=== PATIENT | female | born 1950 | race Caucasian/White ===

== ENCOUNTER 2018-06-12 11:48 | Emergency (ER) | payer MEDICARE ==
[~2018-06-12] VITALS: Ht 162.6 cm; Wt 104.3 kg
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
--- NOTE | 2018-06-12 13:45 | Diagnostic Imaging Report ---
EXAMINATION: Left hand, 3 views. COMPARISON: None. HISTORY: 67-year-old female, fall. Left hand and forearm pain. FINDINGS: There is no identified acute fracture or dislocation. There is no radiopaque foreign body. The joint spaces appear well preserved. IMPRESSION: 1. No identified acute bony abnormality of the left hand. Dictated by: Dictated on workstation # [id number]
--- NOTE | 2018-06-12 13:48 | Diagnostic Imaging Report ---
EXAMINATION: Left forearm, two views. COMPARISON: None. HISTORY: 67-year-old female, fall. Left forearm and hand pain. FINDINGS: There is a comminuted displaced fracture of the proximal ulna. The fracture extends towards the coronoid process which is not obviously displaced. There is suspected intra-articular extension of the fracture. The lateral view is obliquely positioned which does limit evaluation of the elbow joint and in particular for assessment of potential elbow joint effusion. There is a lucency in the region of the radial head and neck on the lateral view, which does question an essentially nondisplaced proximal radius fracture. There is no more distally located fracture of the radius or ulna. IMPRESSION: 1. Comminuted displaced fracture of the proximal ulna with question of intra-articular fracture extension. 2. Potential minimally displaced fracture of the radial head and neck. 3. Limitations for assessment of elbow joint effusion and overall evaluation of the elbow on forearm radiographs. 4. Recommend CT left elbow without contrast for further fracture evaluation. Dictated by: Dictated on workstation # [id number]
--- NOTE | 2018-06-12 15:01 | Diagnostic Imaging Report ---
PROCEDURE: CT left upper extremity without contrast. TECHNIQUE: Multiple contiguous axial images were obtained through the left upper extremity without the use of intravenous contrast. INDICATION: Further evaluation of proximal ulnar fracture and potential radial head fracture. Trauma after fall. COMPARISON: Left forearm radiographs from 06/12/2018. FINDINGS: In the proximal ulna, there is a mildly comminuted segmental fracture involving the proximal diaphysis. There are two separate segmental fragments present, one involving the volar surface that has a fracture line extending up to the sublime tubercle of the coronoid process, however there is no intra-articular extension. The other segmental component involves the dorsal and radial cortex and has less than 2 mm of fracture gap displacement/diastasis. An acute fracture of the radial head is present that involves the lateral one-third of the articular surface. There is approximately 1-2 mm articular surface depression. Small elbow joint effusion is present compatible with intra-articular fracture of the radial head. Reticulations throughout the posterior subcutaneous fat distal upper arm and proximal forearm is most compatible with edema and/or contusion. IMPRESSION: 1. Acute, mildly comminuted fracture of the proximal ulnar diaphysis has two dominant segmental fragments that are not substantially displaced. A fracture line extends into the coronoid process of the ulna, although there is no extension into the articular surface. 2. Acute, minimally depressed fracture of the radial head involves approximately 1/3 of the radial head articular surface. Dictated by: Dictated on workstation # [id number]
[2018-06-12 15:23] VITALS: BP 132/87
== END 2018-06-12 15:23 | disposition home or self-care (01) ==
LOC: ER 11:51
DX: S52.092A Other fracture of upper end of left ulna, initial encounter for closed fracture (principal); S52.122A Displaced fracture of head of left radius, initial encounter for closed fracture; V86.45XA Person injured while boarding or alighting from a 3- or 4- wheeled all-terrain vehicle (ATV), initial encounter
CPT/HCPCS: 29105; 73090; 73130; 73200